=== PATIENT | female | born 1980 | race Caucasian/White ===

== ENCOUNTER → 2018-09-08 | Day surgery (SDC) | payer BC ==
[2018-09-03 12:15] LABS: BASOPHIL % 0.6 % (0-2); PLATELET COUNT 229 x10^3mcL (130-400)
[2018-09-03 12:16] LABS: RED CELL DISTRIBUTION WIDTH 16.6 % (11.5-14.5)
[2018-09-03 12:37] LABS: ALBUMIN 3.7 g/dL (3.4-5.0); ALKALINE PHOSPHATASE 50 U/L (46-116); ALT/SGPT 25 U/L (14-59); AST/SGOT 19 U/L (15-37); BILIRUBIN TOTAL 0.3 mg/dL (0.20-1.00); CALCIUM 8.4 mg/dL (8.5-10.1); CARBON DIOXIDE 25.9 mmol/L (21-32); CHLORIDE SERUM 104 mmol/L (98-107); CREATININE SERUM 0.6 mg/dL (0.6-1.0); GFR1 > 60 mL/min; GLUCOSE SERUM 86 mg/dL (74-106); POTASSIUM SERUM 4.2 mmol/L (3.5-5.1); SODIUM SERUM 139 mmol/L (136-145); TOTAL PROTEIN, SERUM 7.4 g/dL (6.4-8.2)
[~2018-09-08] VITALS: Ht 157.5 cm; Wt 69.4 kg
[2018-09-08 08:14] VITALS: BP 153/93
[2018-09-08 18:25] VITALS: BP 130/72
== END | disposition home or self-care (01) ==
LOC: DS 07:42 → OR 13:30 → DS 13:30
PROVIDERS: Surgery
PROC: 0HBT0ZZ Excision of Right Breast, Open Approach (ICD-10-PCS; principal; 2018-09-08 13:30)
DX: D24.1 Benign neoplasm of right breast (principal); D64.9 Anemia, unspecified
CPT/HCPCS: 88344; J0690; J1170; J2001; J2250; J2405; J2704; J3010; J3490; J7120